=== PATIENT | male | born 1995 | race Asian ===

== ENCOUNTER 2016-06-10 14:26 | Emergency (ER) | payer OTHER ==
[~2016-06-10] VITALS: Ht 177.8 cm; Wt 77.8 kg
[~2016-06-10 14:26] MED LIST: IBUP-1050 PO
[2016-06-10 14:40] VITALS: TEMP 36.8; Ht 177.8 cm; Wt 77.8 kg
[2016-06-10] MEDS ORDERED: PROPARACAINE HCL 0.5% OP SOLN 15 ML BTL OP STA (14:56)
--- NOTE | 2016-06-10 15:59 | EMERGENCY ROOM VISIT NOTE ---
History First contact with patient: 14:56 Chief Complaint: EYE ASSESSMENT Stated Complaint: SWOLLEN EYE History of Present Illness The patient is a 21 year old male who presents to the Emergency Room via private vehicle accompanied by male friend with complaints of "swollen eye". Patient states that Friday night he had a straw in a beverage glass and excellently bent forward and struck his eye off of the straw. He states that the stroke was stuck in the inner portion of his left eye for a few seconds. He states that since then he has been washing the eye out 3-4 times a day, and when he woke up this morning his left eye did not open. He is also wearing sunglasses because bright lights hurt the eye. When opening his left eye he rates the pain as a 5/10. He feels as though the eyes irritated. There is associated headache in the left frontal region. This is not the worst headache of his life. His tetanus is up-to-date. Review of Systems A complete 6-point Review of Systems was discussed with the patient, with pertinent positives and negatives listed in the History of Present Illness. All remaining Review of Systems questions can be considered negative unless otherwise specified. Past Medical/Surgical History Medical Problems: (1) Anxiety (2) History Of Tobacco Use (3) Panic attacks Surgical Problems: (1) History of appendectomy Family History No significant family history High blood pressure, cancer Social History Smoking Status: Current Every Day Smoker Alcohol Use: occasionally Drug Use: none Marital Status: single Housing Status: lives with friends Occupation Status: [employer] student Social History: Patient is a [employer] student and lives with friends. He admits to tobacco and alcohol use. Current/Historical Medications No Active Prescriptions or Reported Meds Allergies Coded Allergies: No Known Allergies (Unverified , 04/12/15) Physical Exam Vital Signs Date Time Temp Pulse Resp B/P Pulse Ox O2 Delivery O2 Flow Rate FiO2 06/10/16 16:02 64 16 113/71 99 Room Air 06/10/16 14:40 36.8 71 18 123/84 98 Right Eye Acuity: 20/25 Left Eye Acuity: 20/30 Physical Exam VITAL SIGNS - Vital signs and nursing notes were reviewed. Patient is afebrile , normotensive, non-tachycardic and saturating well on room air 98%. GENERAL -21-year-old male appearing his stated age. Communicates well with provider and answers questions appropriately. HEAD - Normocephalic, Atraumatic. No Agee's Sign or Raccoon's Eyes. No depressed skull fractures palpable. EYES - PERRL with EOMI bilaterally. Sclera without noticeable foreign body or excoriations. No injection noted in the left eye. Without subconjunctival hemorrhage. Palpebral conjunctiva pink and moist with no injection or discharge noted. Slit lamp examination performed as further described. EARS - No deformities of external structures noted on gross examination bilaterally. NOSE - Midline and without cyanosis. Without discharge. MOUTH/OROPHARYNX - Without perioral cyanosis. Slit Lamp Examination was performed of the left eye(s). Alcaine drops were applied to the affected eye(s) for proper anesthetization. The affected eye(s) were stained with Fluorescein stain to precipitate adequate visualization of any conjunctival/scleral excoriations or ulcers. The patient's face was comfortably rested on the chin guard of the slit lamp apparatus. The lights were dimmed and the affected eye(s) were thoroughly examined under microscopy using the blue light. Forcing uptake was present just to the left of the central axis of vision on the medial portion of the left cornea, this appears to be through the first few layers of the cornea without clear ulceration. Negative Ferny sign. Additionally, the eye(s) were examined under microscopy using the regular light. Close examination revealed no gross abnormality. Patient tolerated the procedure well and no complications were met. An Automated Tonometer was utilized to obtain bilateral orbital pressures. The pressures in the LEFT eye were found to be 12, 13 with an average of 12.5. The pressures in the RIGHT eye were found to be 18, 19 with an average of 18.5. Patient tolerated the procedure well and no complications were met. Medical Decision & Procedures Medical Decision Patient was seen and evaluated as above. After obtaining a thorough history and physical examination the patient's left eye was anesthetized with 1 drop of Alcaine. The eye was examined and revealed no gross abnormalities. No palpable fractures around the orbit. No tenderness around the orbit. Left eye lids unremarkable. Sclera are intact. Eye staining as described in the slit lamp revealed a corneal abrasion through a few layers. Negative Ferny sign. The anesthetizing drops did completely numb the eye. No evidence of orbital cellulitis. I did discuss the case with my attending and then decided to speak with the on-call material control manager. I spoke with Dr. Toledo, at 3:24 PM. We discussed the patient's case, and he stated that if the pressures in the eyes are good when I checked him, and the patient can call his office first thing tomorrow at 8 AM to schedule follow-up as well as to place him on ofloxacin eyedrops. The patient is to call his office tomorrow morning at 8 AM to schedule follow-up appointment of the providers. Patient was instructed on plan of care and seemed happy with this. He noted that he would like something for pain temporarily therefore he was provided with a home pack for OxyIR. I believe the patient is experiencing a corneal abrasion secondary to trauma from the straw. No emergent findings on exam. He was educated upon management, had questions answered prior to discharge, was educated upon worrisome symptoms in which to return and was discharged home in good condition. He was given the antibiotic eyedrops here. In the evaluation and treatment of this patient, the following differential diagnoses were considered: Corneal Abrasion, Conjunctivitis, Eye Contusion, Globe Injury, Orbital Floor Injury (Blowout Fracture), Corneal Ulcer, Keratitis , Herpes Zoster Opthalmic, Blepharitis, Orbital Cellulitis, Iritis, Scleritis/ Episcleritis, Uveitis, Temporal Arteritis, Subconjunctival Hemorrhage. [place] Drug Monitoring Program Search Results: patient reviewed within database, no issues identified Impression Primary Impression: Corneal abrasion, left Departure Information Dispostion Home / Self-Care Condition GOOD Prescriptions No Active Prescriptions or Reported Meds Referrals No Doctor, Assigned (PCP) Vasyl Toledo D.O. Patient Instructions My [facility] Additional Instructions You have been treated in the Emergency Department today for your Corneal Abrasion. You have been prescribed Oxy IR to be used for pain control. This is a narcotic medication. You cannot drive or consume alcohol while on this medicine. This medicine should only be used for pain that cannot be controlled with over-the- counter pain medicines. You have been prescribed ofloxacin eye drops. This is an antibiotic which will help to prevent an infection from developing in your affected eye. You should use 2 drops in the affected eye every 2 hours while awake for the first 2 days, then 2 drops every 6 hours for the remaining 5 days. This is a total of a 7-day course for these antibiotic eye drops. For pain control, you can use the following [id number] medicines (if >12 yo): - Regular strength (325mg/tab) Tylenol (acetaminophen) 2 tabs every 4-6 hours as needed. Do not exceed 12 tablets in a 24 hour period. Avoid taking more than 4 grams (4000 mg) of Tylenol per day. This includes any other sources of acetaminophen you may take on a regular basis. - Regular strength (200 mg/tab) Advil (ibuprofen) 1-2 tabs every 4-6 hours as needed. Do not exceed a dose of 3200 mg per day. You should relax in a quiet, dark place for the rest of the day. You should wear sunglasses while outside for the next few days until your eyes are not as sensitive to the light. You should schedule a follow-up appointment as soon as possible with an Eye Doctor ([facility]) for further evaluation and treatment of your Corneal Abrasion. Please call Dr. Toledo first thing tomorrow morning. PLEASE CALL THE NUMBER ABOVE Return to the Emergency Department if your current symptoms worsen despite treatment course outlined above, or if you develop any of the following symptoms : intractable pain, visual disturbances, loss of vision, increased redness, swelling, drainage, or if you develop a fever. Problem Qualifiers Primary Impression: Corneal abrasion, left Encounter type: initial encounter Qualified Codes: S05.02XA - Injury of conjunctiva and corneal abrasion without foreign body, left eye, initial encounter
[2016-06-10 16:02] VITALS: BP 113/71; PULSE 64; O2SAT 99
[2016-06-10] MEDS ORDERED: OFLOXACIN 0.3% OP SOLN 5 ML BTL OP STA (16:25)
[2016-06-10] MEDS ORDERED: OXYCODONE IR HOME PACK PO STA (16:38)
== END 2016-06-10 16:53 | disposition home or self-care (01) ==
LOC: C.EDB 14:28 → C.EDD 16:53
DX: S05.02XA Injury of conjunctiva and corneal abrasion without foreign body, left eye, initial encounter (principal); R51 Headache; F41.9 Anxiety disorder, unspecified; Z82.49 Family history of ischemic heart disease and other diseases of the circulatory system; F17.200 Nicotine dependence, unspecified, uncomplicated; X58.XXXA Exposure to other specified factors, initial encounter

== ENCOUNTER 2016-08-21 02:58 | Emergency (ER) | payer OTHER ==
[~2016-08-21] VITALS: Ht 177.8 cm; Wt 72.0 kg
[2016-08-21 03:04] VITALS: TEMP 36.8; Ht 177.8 cm; Wt 72.0 kg
[2016-08-21 04:00] LABS: HEMATOCRIT 45.9 % (42-52); MEAN CELL VOLUME 92.4 fL (80-100); MEAN CORPUSCULAR HEMOGLOBIN 31.4 pg (25-34); PLATELET COUNT 220 K/uL (130-400); RED BLOOD COUNT 4.97 M/uL (4.7-6.1); WHITE BLOOD COUNT 7.05 K/uL (4.8-10.8)
[2016-08-21 04:07] LABS: URINE APPEARANCE CLEAR (CLEAR); URINE BILIRUBIN NEG (NEG); URINE COLOR YELLOW; URINE NITRITE NEG (NEG); URINE SPECIFIC GRAVITY 1.012 (1.000-1.030); UROBILINOGEN NEG (NEG); ZZUR CULT IF INDIC CLEAN CATCH NO
[2016-08-21 04:11] LABS: MANUAL MICROSCOPIC REQUIRED? NO; REVIEW REQ? NO
[2016-08-21 04:17] LABS: BASO % 0.1 %; BASO ABS # 0.01 K/uL (0-0.2); BUN/CREATININE RATIO 15.8 (10-20); CALCIUM 8.3 mg/dl (8.5-10.1); COMPLETE YES; CREATININE 0.83 mg/dl (0.60-1.40); EOS % 0.9 %; IG% 0.1 %; LYMPH % 50.1 %; LYMPH ABS # 3.53 K/uL (1.2-3.4); MONO % 6.1 %; NEUT % 42.7 %; POTASSIUM 3.6 mmol/L (3.5-5.1)
[2016-08-21 04:27] LABS: BENZODIAZEPINE, URINE NEG (NEG); COCAINE,URINE NEG (NEG); PHENCYCLIDINE, URINE NEG (NEG)
--- NOTE | 2016-08-21 05:33 | EMERGENCY ROOM VISIT NOTE ---
History Report prepared by Ra: Daryl Betancourt Under the Supervision of: Dr. Gabbi Velasquez M.D. First contact with patient: 03:19 Chief Complaint: FALL Stated Complaint: BROKEN TEETH History of Present Illness The patient is a 21 year old male who presents to the Emergency Room following a falling episode that occurred shortly prior to arrival. The patient states that he had been arguing with his roommate this evening before going down town and consuming alcohol. He claims that he had 3 drinks, each of which consisted of 60 mL of Tequila. After returning home the patient continued to argue with his roommate, and he slipped on the kitchen floor. He injured his right knee from this fall. As the patient attempted to leave the house he fell out of the front door and chipped one of his teeth. The patient currently experiencing pain in the right knee and tooth. Source of History: patient Onset: Shortly BLIND AIDE Position: knee (right) Quality: other (Falling episode) Note: Pain in chipped tooth. Review of Systems See HPI for pertinent positives & negatives. A total of 10 systems reviewed and were otherwise negative. Past Medical & Surgical No pertinent past medical/surgical history. Family History No pertinent recorded. Social History Smoking Status: Current Every Day Smoker Marital Status: single Housing Status: lives with roommate Occupation Status: [employer] student Current/Historical Medications No Active Prescriptions or Reported Meds Allergies Coded Allergies: No Known Allergies (Unverified , 08/21/16) Physical Exam Vital Signs Date Time Temp Pulse Resp B/P Pulse Ox O2 Delivery O2 Flow Rate FiO2 08/21/16 06:08 78 16 117/75 94 Room Air 08/21/16 05:00 70 16 109/68 98 Room Air 08/21/16 04:14 87 18 109/68 97 Room Air 08/21/16 03:29 76 08/21/16 03:04 36.8 89 18 122/77 98 Room Air Physical Exam Vital signs reviewed. General: Intoxicated 21-year-old male, in no significant distress. HEENT: No scleral icterus, PERRLA, neck supple. Atraumatic. There is a chip off of the right central incisor medially. Teeth are stable to palpation. No bleeding from the mouth. Cardiovascular: Regular rate and rhythm, no extra sounds. Pulmonary: Clear to auscultation bilaterally, normal work of breathing. Abdomen: Soft, nontender, nondistended, positive bowel sounds. Musculoskeletal: Atraumatic, no peripheral edema. Mild abrasions to the left knee. Mild tenderness appreciated along the entire thoracic and lumbar spine, no step-off, deformity or trauma appreciated. Neurologic: Patient awake alert and oriented x 3, full strength in all 4 extremities. Cranial nerves 2 through 12 grossly intact. Skin: Warm, dry, no rash Medical Decision & Procedures ER Provider Diagnostic Interpretation: Radiology results as stated below per my review and radiologist interpretation: CT HEAD: No acute intracranial abnormality. No ICH, mass effect or edema. No skull fracture. Radiologist: Evan Jackman MD. Study ready at 04:24 and initial results transmitted at 04:35. X-RAY RIGHT KNEE: No fracture, no dislocation, normal knee film. Laboratory Results 08/21/16 03:47 Red Blood Count 4.97, Mean Corpuscular Volume 92.4, Mean Corpuscular Hemoglobin 31.4, Mean Corpuscular Hemoglobin Concent 34.0, Mean Platelet Volume 9.0, Neutrophils (%) (Auto) 42.7, Lymphocytes (%) (Auto) 50.1, Monocytes (%) (Auto) 6.1, Eosinophils (%) (Auto) 0.9, Basophils (%) (Auto) 0.1, Neutrophils # (Auto) 3.01, Lymphocytes # (Auto) 3.53, Monocytes # (Auto) 0.43, Eosinophils # (Auto) 0.06, Basophils # (Auto) 0.01 08/21/16 03:47 Test 08/21/16 03:47 08/21/16 03:58 White Blood Count 7.05 K/uL (4.8-10.8) Red Blood Count 4.97 M/uL (4.7-6.1) Hemoglobin 15.6 g/dL (14.0-18.0) Hematocrit 45.9 % (42-52) Mean Corpuscular Volume 92.4 fL (80-100) Mean Corpuscular Hemoglobin 31.4 pg (25-34) Mean Corpuscular Hemoglobin Concent 34.0 g/dl (32-36) Platelet Count 220 K/uL (130-400) Mean Platelet Volume 9.0 fL (7.4-10.4) Neutrophils (%) (Auto) 42.7 % Lymphocytes (%) (Auto) 50.1 % Monocytes (%) (Auto) 6.1 % Eosinophils (%) (Auto) 0.9 % Basophils (%) (Auto) 0.1 % Neutrophils # (Auto) 3.01 K/uL (1.4-6.5) Lymphocytes # (Auto) 3.53 K/uL (1.2-3.4) Monocytes # (Auto) 0.43 K/uL (0.11-0.59) Eosinophils # (Auto) 0.06 K/uL (0-0.5) Basophils # (Auto) 0.01 K/uL (0-0.2) RDW Standard Deviation 41.7 fL (36.4-46.3) RDW Coefficient of Variation 12.4 % (11.5-14.5) Immature Granulocyte % (Auto) 0.1 % Immature Granulocyte # (Auto) 0.01 K/uL (0.00-0.02) Red Blood Cell Morphology Unremarkable Anion Gap 8.0 mmol/L (3-11) Est Creatinine Clear Calc Drug Dose 142.2 ml/min Estimated GFR () 144.8 Estimated GFR (Non- 124.9 BUN/Creatinine Ratio 15.8 (10-20) Calcium Level 8.3 mg/dl (8.5-10.1) Total Bilirubin 0.7 mg/dl (0.2-1) Direct Bilirubin 0.2 mg/dl (0-0.2) Aspartate Amino Transf (AST/SGOT) 9 U/L (15-37) Alanine Aminotransferase (ALT/SGPT) 28 U/L (12-78) Alkaline Phosphatase 83 U/L (45-117) Total Protein 7.5 gm/dl (6.4-8.2) Albumin 4.3 gm/dl (3.4-5.0) Ethyl Alcohol mg/dL 258.0 mg/dl (0-3) Urine Color YELLOW Urine Appearance CLEAR (CLEAR) Urine pH 5.0 (4.5-7.5) Urine Specific Antelope 1.012 (1.000-1.030) Urine Protein NEG (NEG) Urine Glucose (UA) NEG (NEG) Urine Ketones NEG (NEG) Urine Occult Blood NEG (NEG) Urine Nitrite NEG (NEG) Urine Bilirubin NEG (NEG) Urine Urobilinogen NEG (NEG) Urine Leukocyte Esterase NEG (NEG) Urine Opiates Screen NEG (NEG) Urine Methadone, Qualitative NEG (NEG) Urine Barbiturates NEG (NEG) Urine Phencyclidine (PCP) Level NEG (NEG) Ur Amphetamine/Methamphetamine NEG (NEG) MDMA (Ecstasy) Screen NEG (NEG) Urine Benzodiazepines Screen NEG (NEG) Urine Cocaine Metabolite NEG (NEG) Urine Marijuana (THC) NEG (NEG) Laboratory results per my review. ED Course 0319: Past medical records reviewed. The patient was evaluated in room A11B. A complete history and physical examination was performed. 0446: I reevaluated the patient at this time. He was resting in bed. Upon reevaluation, the patient appeared to have improvement of his symptoms. I discussed findings with him. He verbalized agreement of the treatment plan. The patient was discharged home. Medical Decision Trauma: Intracranial injury, cervical spine injury, intrathoracic injury, intra- abdominal injury, musculoskeletal injury. This patient was evaluated and appeared to be in no significant distress. He does appear to be significantly intoxicated. Patient's physical exam reveals a chipped central incisor. There is no movement of the teeth to indicate instability. Patient's physical exam is negative for cervical spine tenderness. He does have diffuse tenderness along the mid to low back. There is no focal point of trauma. X-ray was obtained of the right knee due to complaints of discomfort however these studies are negative to my interpretation. Laboratory work indicates a blood alcohol level of 258. The patient did not want a CAT scan of his head however I feel with his initial reports a possible consciousness, head injury and alcohol intoxication this is indicated. I do not feel that the patient has capacity with this blood alcohol level to refuse CAT scan. This study was obtained and is negative for acute intracranial abnormality. On reevaluation, the patient was groggy. He was observed in the emergency department until he reached a more sober state. The patient was asked to follow-up with his physician or [facility] services this week for reevaluation and return to the ER for worsening of symptoms or any medical concerns. Impression Primary Impression: Alcohol intoxication Additional Impressions: Contusion of multiple sites Fall Chipped tooth Scribe Attestation The scribe's documentation has been prepared under my direction and personally reviewed by me in its entirety. I confirm that the note above accurately reflects all work, treatment, procedures, and medical decision making performed by me. Departure Information Prescriptions No Active Prescriptions or Reported Meds Referrals No Doctor, Assigned (PCP) Forms HOME CARE DOCUMENTATION FORM, IMPORTANT VISIT INFORMATION Patient Instructions [facility] Additional Instructions Please drink plenty of clear fluids. Avoid alcohol in excess. Ibuprofen 600 mg every 6 hours as needed for pain with food. Follow-up with the dentist as soon as possible to evaluate the chipped tooth. Follow-up with [facility] for reevaluation of the closed head injury. Return to the emergency department for worsening of symptoms or any medical concerns. Problem Qualifiers Primary Impression: Alcohol intoxication Complication of substance-induced condition: with unspecified complication Qualified Codes: F10.129 - Alcohol abuse with intoxication, unspecified Additional Impressions: Fall Encounter type: initial encounter Qualified Codes: W19.XXXA - Unspecified fall, initial encounter
--- NOTE | 2016-08-21 06:50 | DIAGNOSTIC IMAGING REPORT ---
RIGHT KNEE 1 OR 2 VIEWS ROUTINE CLINICAL HISTORY: Right knee pain status post trauma COMPARISON: None. DISCUSSION: No fractures or dislocations are visualized. There is mild prepatellar soft tissue edema. IMPRESSION: No fractures or dislocations identified. Electronically signed by: José Miguel De Los Santos M.D. 08/21/2016 6:48 AM Dictated Date/Time: 08/21/2016 6:47 AM
--- NOTE | 2016-08-21 07:08 | DIAGNOSTIC IMAGING REPORT ---
HEAD CT NONCONTRAST CT DOSE: 537.48 mGy.cm HISTORY: Head injury. TECHNIQUE: Multiaxial CT images of the head were performed without the use of intravenous contrast. Automated exposure control was utilized for this study. Comparison: None. Findings: The paranasal sinuses and mastoid air cells are clear. The calvarium and skull base are intact. The ventricles and sulci are within normal limits. There is no mass, hematoma, midline shift, or acute infarct. Impression: No acute intracranial abnormality. Electronically signed by: Theo Cochran M.D. 08/21/2016 7:06 AM Dictated Date/Time: 08/21/2016 7:05 AM
[2016-08-21 09:56] VITALS: PULSE 65; O2SAT 99
[2016-08-21 10:43] VITALS: BP 108/72
== END 2016-08-21 10:43 | disposition home or self-care (01) ==
LOC: C.EDB 03:00 → MERGE 03:00 → C.EDA 10:43
DX: T14.8 Other injury of unspecified body region (principal); S02.5XXA Fracture of tooth (traumatic), initial encounter for closed fracture; W01.0XXA Fall on same level from slipping, tripping and stumbling without subsequent striking against object, initial encounter; Y92.019 Unspecified place in single-family (private) house as the place of occurrence of the external cause; F10.129 Alcohol abuse with intoxication, unspecified; Y90.8 Blood alcohol level of 240 mg/100 ml or more; F17.200 Nicotine dependence, unspecified, uncomplicated

== ENCOUNTER 2017-08-01 02:01 | Emergency (ER) | payer OTHER ==
[~2017-08-01] VITALS: Ht 177.8 cm; Wt 67.9 kg
[2017-08-01] MEDS ORDERED: HALOPERIDOL LACTATE 5 MG/ML 1 ML VIAL IM STA ×2 (02:05→03:29)
[2017-08-01] MEDS ORDERED: LORAZEPAM 2 MG/ML 1 ML VIAL IM STA ×2 (02:05→03:29)
[2017-08-01 02:10] VITALS: O2SAT 96; Ht 177.8 cm; Wt 67.9 kg
[2017-08-01 02:46] LABS: CREATININE 0.92 mg/dl (0.60-1.40); POTASSIUM 3.6 mmol/L (3.5-5.1)
[2017-08-01 14:08] VITALS: BP 91/63; PULSE 71; O2SAT 100
--- NOTE | 2017-08-01 16:41 | EMERGENCY ROOM VISIT NOTE ---
ED Visit Note The care of this patient was signed out to me by Lashanda Díaz PA-C at change of shift. At that time, the patient was pending reevaluation after sobering up. The patient had been seen overnight for alcohol intoxication and did receive Haldol and Ativan due to unruly behavior. After several hours, the patient was reevaluated and had woken up. The patient was evaluated and had no evidence of trauma on exam. He had no complaints on my evaluation. I explained to the patient what happened last night and he verbalized his understanding. The patient contacted his girlfriend to pick him up and was discharged home in good condition.
--- NOTE | 2017-08-01 22:43 | EMERGENCY ROOM VISIT NOTE ---
History First contact with patient: 02:01 Chief Complaint: ALCOHOL OVERDOSE Stated Complaint: ALCOHOL OVERDOSE Nursing Triage Summary: pt brought to [facility] via EMS for alcohol overdose. Pt not cooperative and swinging at staff. Leather restraints applied at this time per MD order at bedside. Haldol 5mg IM and Ativan 1mg IM given per MD order at bedside. History of Present Illness The patient is a 22 year old male who presents to the Emergency Room with complaints of alcohol intoxication who was found by the police stumbling downtown and incoherent. Patient is yelling and screaming and swinging at staff. I am unable to obtain history. He is screaming and being threatening towards staff. Security was at bedside restraining the patient. Patient is uncooperative and will not give history. Review of Systems Unable to obtain secondary to combative behavior and alcohol overdose Past Medical/Surgical History Medical Problems: (1) Anxiety (2) History Of Tobacco Use (3) Panic attacks Surgical Problems: (1) History of appendectomy Family History No significant family history Social History Smoking Status: Never Smoker Alcohol Use: occasionally Drug Use: none Marital Status: single Housing Status: lives with roommate Occupation Status: [employer] student Current/Historical Medications No Active Prescriptions or Reported Meds Physical Exam Vital Signs Date Time Temp Pulse Resp B/P (MAP) Pulse Ox O2 Delivery O2 Flow Rate FiO2 08/01/17 14:08 71 16 91/63 100 08/01/17 13:02 73 08/01/17 12:59 72 14 76/39 97 08/01/17 10:58 74 16 90/44 97 Room Air 08/01/17 09:54 69 16 77/44 97 Room Air 08/01/17 09:50 68 08/01/17 07:28 71 18 88/52 98 Room Air 08/01/17 06:22 74 08/01/17 06:01 103/72 08/01/17 05:50 81 22 98 Room Air 08/01/17 05:30 114/76 08/01/17 05:20 88 99 Room Air 08/01/17 05:01 105/58 08/01/17 04:50 88 10 98 Room Air 08/01/17 04:31 96/53 08/01/17 04:20 75 21 98 Room Air 08/01/17 04:11 99/62 08/01/17 03:50 95 94 Room Air 08/01/17 03:45 94 96 Room Air 08/01/17 03:15 79 23 08/01/17 03:00 103/45 08/01/17 02:55 98/45 08/01/17 02:45 95 94 Room Air 08/01/17 02:12 105 08/01/17 02:10 112 20 127/83 96 Room Air 08/01/17 02:10 96 Room Air Physical Exam PHYSICAL EXAM: VITALS: Vitals are noted on the nurse's note and reviewed by myself. Vital signs stable. GENERAL: male yelling and screaming fighting with staff who appears intoxicated with EtOH odor, nondiaphoretic, well-developed well-nourished. The patient is visibly intoxicated. SKIN: The skin was without obvious lacerations, abrasions, or rashes. There is no tenting of the skin. Capillary reflex less than 2 seconds. HEENT: Normocephalic, atraumatic. PERRLA. EOMI. Conjunctiva with mild injection without icterus. Tympanic membranes without erythema or effusion bilaterally no hemotympanum. External auditory canals are clear. Nares patent bilaterally. No epistaxis. Oropharynx without erythema or exudate. Uvula midline. Oral mucosal moist. No lymphadenopathy. Neck is supple without cervical spine tenderness. HEART: Regular rate and rhythm without murmurs gallops or rubs. Peripheral pulses 2+. LUNGS: Clear to auscultation bilaterally without wheezes, rales or rhonchi. ABDOMEN: Positive bowel sounds x 4. Normal tympanic percussion. Soft, nontender, without masses or organomegaly. MUSCULOSKELETAL: Gross motor function of the upper and lower extremities intact. The patient has a staggering gait. NEUROLOGIC: The patient is visibly intoxicated. Once they were more sober they were alert and oriented to person place and time. Medical Decision & Procedures Laboratory Results 08/01/17 02:12 Test 08/01/17 02:12 Anion Gap 7.0 mmol/L (3-11) Est Creatinine Clear Calc Drug Dose 119.9 ml/min Estimated GFR () 135.4 Estimated GFR (Non- 116.8 BUN/Creatinine Ratio 11.5 (10-20) Calcium Level 9.0 mg/dl (8.5-10.1) Ethyl Alcohol mg/dL 312.0 mg/dl (0-3) Medications Administered Medications (Trade) Dose Ordered Sig/Danelle Route Start Time Stop Time Status Last Admin Dose Admin Lorazepam (Ativan Inj) 1 mg NOW STAT IM 08/01/17 02:05 08/01/17 02:07 DC 08/01/17 02:09 1 MG Haloperidol Lactate (Haldol Inj) 5 mg NOW STAT IM 08/01/17 02:05 08/01/17 02:07 DC 08/01/17 02:09 5 MG Haloperidol Lactate (Haldol Inj) 5 mg NOW STAT IM 08/01/17 03:29 08/01/17 03:31 DC 08/01/17 03:29 5 MG Lorazepam (Ativan Inj) 1 mg NOW STAT IM 08/01/17 03:29 08/01/17 03:31 DC 08/01/17 03:29 1 MG ED Course Prior records/ancillary studies reviewed. Triage Nursing notes reviewed. Additional history obtained from EMS. The patient's history was concerning for altered mental status and a possible alcohol overdose. Differential diagnosis: Etiologies such as alcohol intoxication, toxicologic, infection, hypoglycemia, electrolyte abnormalities, cardiac sources, intracerebral event, neurologic, as well as others were entertained. Physical examination: As above. The patient is clinically intoxicated. no trauma noted. ER treatment provided: Monitoring Aspiration precautions Patient was combative so physical and medical restraints were placed. Patient was yelling and screaming at staff. He was threatening. Patient was informed if he does not cooperate for his safety and for the staffs safety he would be restrained. He kept on yelling and swinging at staff. He was sedated with 5 of Haldol and 1 of Ativan. Once the patient was more cooperative no longer combative, the restraints were removed. He was reassessed multiple times. The patient was frequently reassessed. Diagnostic interpretation by me: Cardiac monitoring did not reveal any evidence of dysrhythmia. The labs revealed no worrisome electrolyte abnormality. The patient's blood alcohol level was 312 mg/dL. This appears to be consistent with an isolated overdose of alcohol he was combative and for his safety and the staff states that he was sedated. His vital signs remained stable. His airway was patent. He was still yelling and screaming at staff for several hours. He was reassessed multiple times. He remained stable throughout his stay. Patient was still sedated at the time of signout. Case is signed out to Iris Gu PA-C, pending patient sobering up and reevaluation in stable condition. Case reviewed with my attending The chart was completed utilizing [employer] Speech voice recognition software. Grammatical errors, random word insertions, pronoun errors, and incomplete sentences are an occassional consequence of this system due to software limitations, ambient noise, and hardware issues. Any formal questions or concerns about the content, text, or information contained within the body of this dictation should be directly addressed to the physician veterinarian assistant for clarification. Medical Decision As above Medication Reconcilliation Current Medication List: was personally reviewed by me Blood Pressure Screening Patient's blood pressure: Normal blood pressure Impression Primary Impression: Alcohol overdose Additional Impression: Combative behavior Critical Care I have personally spent greater than 30 minutes of critical care time in the direct management of this patient. This includes bedside care, interpretation of diagnostic studies, and testing, discussion with consultants, patient, and family members, and other required patient management activities. This 30 minutes is in excess of all separately billable procedures. Departure Information Prescriptions No Active Prescriptions or Reported Meds Referrals No Doctor, Assigned (PCP) Patient Instructions My [facility] Additional Instructions DO NOT drive, drink alcohol, operate machinery, or perform dangerous activities today. You were given medications in the ER that can affect your ability to safely function or operate a vehicle. You were combative last night. For your safety and staff's safety you were sedated. I strongly recommend that you abstain from alcohol and seek help for your excessive alcohol drinking. Keep well-hydrated. Tylenol every 6 hours as needed for pain (Maximum 3000 mg Tylenol in 24 hr period). Follow up with family doctor and/or health services as needed. No driving for the next 24 hours. Recommend no alcohol for the next 48 hours and avoid binge drinking in the future. Return to ER sooner for chest pain, abdominal pain, worsening signs or symptoms or as needed. Problem Qualifiers Primary Impression: Alcohol overdose Encounter type: initial encounter Injury intent: accidental or unintentional Qualified Codes: T51.91XA - Toxic effect of unspecified alcohol , accidental (unintentional), initial encounter
== END 2017-08-01 14:11 | disposition home or self-care (01) ==
LOC: EDBD 02:01 → C.EDA 02:02
DX: T51.91XA Toxic effect of unspecified alcohol, accidental (unintentional), initial encounter (principal); F91.9 Conduct disorder, unspecified